=== PATIENT | male | born 1970 | race Caucasian/White ===

== ENCOUNTER 2021-05-23 05:35 | Day surgery (SDC) | payer OTHER ==
[2021-05-17 14:34] VITALS: BMI 25.8
[2021-05-23] MEDS ORDERED: Phenylephrine 2.5% Ophth Soln 5 ML BOT ONE (06:02)
[2021-05-23] MEDS ORDERED: Cyclopentolate 1% Opth Drop 2 ML BOT ONE (06:02)
[2021-05-23] MEDS ORDERED: EPINEPHrine 0.3 MG in Ophthalmic Irrigation Solution 500 ML IRR SCH (06:15)
[2021-05-23] MEDS ORDERED: PROPOFOL 20 ML ONE (06:21)
[2021-05-23] MEDS ORDERED: Midazolam HCl 2 mg/2 ml Vial ONE (06:21)
[2021-05-23] MEDS ORDERED: Fentanyl 100 MCG/2 ML VIAL ONE (06:21)
[2021-05-23] MEDS ORDERED: Lidocaine 1% PF 5 ML VIAL ONE (07:14)
[2021-05-23] MEDS ORDERED: Bupivacaine PF 0.75% SDV 10 ML ONE (07:14)
[2021-05-23] MEDS ORDERED: CEFAZOLIN 1 GM VIAL ONE (07:14)
[2021-05-23] MEDS ORDERED: Lidocaine 4% PF 5 ML AMP ONE (07:14)
[2021-05-23] MEDS ORDERED: Maxitrol 0.1% Opth Oint 3.5 GM TUBE ONE (07:14)
[2021-05-23] MEDS ORDERED: Triamcinolone 40 MG/ML VIAL ONE (07:14)
== END 2021-05-23 08:38 | disposition home or self-care (01) ==
LOC: SDC 05:35
PROVIDERS: ATTEND Ophthalmology Retina Specialist
PROC: 08T53ZZ Resection of Left Vitreous, Percutaneous Approach (ICD-10-PCS; principal; 2021-05-23)
DX: H43.392 Other vitreous opacities, left eye (principal)
CPT/HCPCS: J0171; J0690; J2250; J2704; J3010; J3301; J3490

== ENCOUNTER 2021-06-27 10:48 | Day surgery (SDC) | payer OTHER ==
[2021-06-26 11:29] VITALS: BMI 25.1
[~2021-06-27 10:48] MED LIST: EPINEPHrine 0.3 MG in Ophthalmic Irrigation Solution 500 ML IRR SCH
[2021-06-27] MEDS ORDERED: Phenylephrine 2.5% Ophth Soln 5 ML BOT ONE (11:07)
[2021-06-27] MEDS ORDERED: Cyclopentolate 1% Opth Drop 2 ML BOT ONE (11:07)
[2021-06-27] MEDS ORDERED: Fentanyl 100 MCG/2 ML VIAL ONE (12:25)
[2021-06-27] MEDS ORDERED: Midazolam HCl 2 mg/2 ml Vial ONE ×2 (12:25)
[2021-06-27] MEDS ORDERED: Maxitrol 0.1% Opth Oint 3.5 GM TUBE ONE (12:34)
[2021-06-27] MEDS ORDERED: Bupivacaine PF 0.75% SDV 10 ML ONE (12:34)
[2021-06-27] MEDS ORDERED: Lidocaine 4% PF 5 ML AMP ONE (12:34)
[2021-06-27] MEDS ORDERED: PROPOFOL 200 MG/20 ML VIAL ONE (12:34)
[2021-06-27] MEDS ORDERED: Lidocaine 1% PF 5 ML VIAL ONE (12:34)
[2021-06-27] MEDS ORDERED: Triamcinolone 40 MG/ML VIAL ONE (12:34)
[2021-06-27] MEDS ORDERED: CEFAZOLIN 1 GM VIAL ONE (12:34)
== END 2021-06-27 14:04 | disposition home or self-care (01) ==
LOC: SDC 10:48
PROVIDERS: ATTEND Ophthalmology Retina Specialist
PROC: 08T53ZZ Resection of Left Vitreous, Percutaneous Approach (ICD-10-PCS; principal; 2021-06-27)
DX: H33.42 Traction detachment of retina, left eye (principal)
CPT/HCPCS: J0171; J0690; J2250; J2704; J3010; J3301; J3490

== ENCOUNTER 2024-05-12 08:53 | Day surgery (SDC) | payer OTHER ==
[2024-05-11 12:11] VITALS: BMI 25.1
[2024-05-12] MEDS ORDERED: Cyclopentolate 1% Opth Drop 2 ML BOT ONE (09:25)
[2024-05-12] MEDS ORDERED: PHENYLephrine 2.5% Ophth Soln 15 ml Bottle ONE (09:25)
[2024-05-12] MEDS ORDERED: PROPOFOL 20 ML ONE (10:21)
[2024-05-12] MEDS ORDERED: fentaNYL 50 mcg/mL 1 mL Vial ONE (10:21)
[2024-05-12] MEDS ORDERED: Midazolam HCl 2 mg/2 ml Vial ONE (10:21)
[2024-05-12] MEDS ORDERED: Bupivacaine 0.75% 10 ML VIAL ONE (11:01)
[2024-05-12] MEDS ORDERED: Indocyanine Green 25 MG/10 ML VIAL ONE (11:01)
[2024-05-12] MEDS ORDERED: CEFAZOLIN 1 GM VIAL ONE (11:01)
[2024-05-12] MEDS ORDERED: Lidocaine 1% PF 5 ML VIAL ONE (11:01)
[2024-05-12] MEDS ORDERED: Maxitrol 0.1% Opth Oint 3.5 GM TUBE ONE (11:01)
[2024-05-12] MEDS ORDERED: Triamcinolone 40 MG/ML VIAL ONE (11:01)
[2024-05-12] MEDS ORDERED: Lidocaine 4% PF 5 ML AMP ONE (11:01)
== END 2024-05-12 12:05 | disposition home or self-care (01) ==
LOC: SDC 08:53
PROVIDERS: ATTEND Ophthalmology Retina Specialist
PROC: 08T53ZZ Resection of Left Vitreous, Percutaneous Approach (ICD-10-PCS; principal; 2024-05-12)
PROC: 08NF3ZZ Release Left Retina, Percutaneous Approach (ICD-10-PCS; principal; 2024-05-12)
DX: H35.372 Puckering of macula, left eye (principal)
CPT/HCPCS: J0171; J2250; J2704; J3010